=== PATIENT | female | born 1965 | race Caucasian/White ===

== ENCOUNTER 2017-04-17 16:19 | Emergency (ER) | payer MEDICAID ==
[~2017-04-17] VITALS: Ht 162.6 cm; Wt 92.0 kg
[~2017-04-17 16:19] MED LIST: NATURE THROI PO
[2017-04-17 17:06] LABS: HEMATOCRIT 41.6 % (37.0-47.0); HEMOGLOBIN 14.1 g/dl (12.0-16.0); IMMATURE GRANULOCYTES 0.4 % (0.0-1.0); MEAN CELL VOLUME 90.8 fL CALC (80.0-100.0); MEAN CORPUSCULAR HGB 30.8 pG CALC (26.0-32.0); MEAN CORPUSCULAR HGB CONC 33.9 g/L CALC (32.0-36.0); NEUT# 14.74 thou/uL (2.00-7.15); RED BLOOD COUNT 4.58 mill/uL (4.20-5.60); RED CELL DISTRI WIDTH 14.6 % (11.5-15.5)
[2017-04-17 17:18] LABS: INFLUENZA A NONE DETECTED (NONE DETECT); INFLUENZA B NONE DETECTED (NONE DETECT)
[2017-04-17 17:18] LABS: ALKALINE PHOSPHATASE 100 u/l (38-126); ANION GAP 17 (6-22 (CALC)); BILIRUBIN, TOTAL 0.7 mg/dL (0.0-1.4); BUN 11 mg/dL (7-17); BUN/CREATININE RATIO 14 (12-20 (CALC)); CARBON DIOXIDE 22 mmol/l (22-30); CHLORIDE 104 mmol/l (95-108); CREATININE 0.7 mg/dL (0.5-1.0); GFR > 60 ML/MIN (>=60 (CALC)); GFR FOR AFR.AMER. > 60 ML/MIN (>=60 (CALC)); POTASSIUM 4.3 mmol/l (3.5-5.1); SGOT/AST 33 u/l (14-36); SGPT/ALT 36 u/l (9-52); SODIUM 138 mmol/l (137-146); TOTAL PROTEIN 6.9 g/dL (6.3-8.2)
[2017-04-17] MEDS ORDERED: AUGMENTIN875TAB PO (20:26)
[2017-04-17 20:30] VITALS: BP 100/94
== END 2017-04-17 22:38 | disposition home or self-care (01) | DRG 153 ==
LOC: ED 16:19
PROVIDERS: Emergency Medicine
DX: J02.9 Acute pharyngitis, unspecified (principal); D72.829 Elevated white blood cell count, unspecified; R19.7 Diarrhea, unspecified; M79.1 Myalgia; R11.2 Nausea with vomiting, unspecified; R50.9 Fever, unspecified
CPT/HCPCS: Q9967